=== PATIENT | female | born 1995 | race Caucasian/White ===

== ENCOUNTER 2023-03-06 17:20 | Emergency (ER) | payer MEDICAID ==
[~2023-03-06] VITALS: Ht 187.9 cm; Wt 49.8 kg
[2023-03-06] MEDS ORDERED: CYCL10TA25 PO (17:41)
[2023-03-06] MEDS ORDERED: MELO15TA39 PO (17:41)
--- NOTE | 2023-03-06 17:42 | ED Back Pain ---
General Chief Complaint: Back Problems Stated Complaint: BACK/RIGHT SHOULDER PAIN Source of Information: Patient Exam Limitations: No Limitations History of Present Illness Date Seen by Provider: Mar 06, 2023 Time Seen by Provider: 17:36 Initial Comments Patient is a 27-year-old female who presents ED with right shoulder blade pain. She reports sharp pain with movement over the past 3 years. She states she suffered a seizure and fell fracturing her scapula 3 years ago. She states she had an MRI which showed a fracture. She has been on anti-inflammatories and local novocaine shots without much improvement. Her primary care physician at [facility] is scheduling a follow-up with orthopedic. She states she is having unbearable pain. Denies any bruising, swelling, chest pain, shortness of breath or cough. No recent travels or surgeries. History of seizures currently on Keppra and Vimpat. She reports history of chronic seizures. Last seizure 2 or 3 days ago which is normal. Allergies and Home Medications Allergies Coded Allergies: Tetanus Vaccines and Toxoid (Verified Allergy, Unknown, 03/06/23) Patient Home Medication List Home Medication List Reviewed: Yes Cyclobenzaprine HCl (Cyclobenzaprine HCl) 10 Mg Tablet, 10 MG PO TID Prescribed by: KRISTEN MIDDLETON on 03/06/231740 Ketorolac Tromethamine (Ketorolac Tromethamine) 10 Mg Tablet, 10 MG PO TID Prescribed by: KRISTEN MIDDLETON on 03/06/23 1744 Discontinued Medications Meloxicam (Meloxicam) 15 Mg Tablet, 15 MG PO DAILY Prescribed by: KRISTEN MIDDLETON on 03/06/23 174 Review of Systems Constitutional: No chills, No diaphoresis EENTM: No hearing loss, No ear pain, No blurred vision, No double vision Respiratory: No cough, No dyspnea on exertion Cardiovascular: No chest pain Gastrointestinal: No abdominal pain, No diarrhea, No nausea, No vomiting Genitourinary: No decreased output, No discharge Musculoskeletal: back pain, joint pain, joint swelling, muscle pain Skin: No change in color All Other Systems Reviewed Negative Unless Noted: Yes Past Xousyzx-Sdwvea-Amjnla Hx Patient Social History Tobacco Use?: Yes Substance use?: Yes Substance type: Marijuana Alcohol Use?: No Physical Exam Vital Signs Vital Signs - First Documented 03/06/23 17:31 Pulse 71 B/P (MAP) 150/86 (107) Pulse Ox 100 O2 Delivery Room Air Capillary Refill : Height, Weight, BMI Height: '" Weight: lbs. oz. kg; BMI Method: General Appearance: No Apparent Distress, WD/WN HEENT: PERRL/EOMI, TMs Normal, Normal ENT Inspection, Pharynx Normal Neck: Full Range of Motion, Normal Inspection, Non Tender, Supple, Other (Negative Spurling sign. Normal active range of motion of the cervical spine) Cardiovascular: Regular Rate, Rhythm, No Edema, No Gallop, No JVD Respiratory: Chest Non Tender, Lungs Clear, Normal Breath Sounds, No Accessory Muscle Use, No Respiratory Distress Gastrointestinal: Normal Bowel Sounds, No Organomegaly, No Pulsatile Mass, Non Tender, Soft Back: Other (right scapula tenderness. Pain with range of motion the right shoulder. No bruising, redness or swelling. Neurovascular intact.) Extremity: Normal Capillary Refill, Normal Inspection, Other (Pain with range of motion above 90 degrees of the right shoulder. Gravure Press Set Up Operator strength out of 5. Strength with abduction flexion 5 out of 5. Internal/external rotation strength 5-5. Neurovascular intact) Neurologic/Psychiatric: Alert, Oriented x3, No Motor/Sensory Deficits Skin: Normal Color, Warm/Dry Progress/Results/Core Measures Results/Orders My Orders Orders - ZAC MCLAUGHLIN Hydrocodone/Apap 5/325 Tablet (Lortab 5 (03/06/23 17:45) Ketorolac Injection (Toradol Injection) (03/06/23 17:45) Medications Given in ED Current Medications Medications Dose Ordered Sig/Pilar Route Start Time Stop Time Status Last Admin Dose Admin Ketorolac Tromethamine 30 mg ONCE ONCE IM 03/06/23 17:45 03/06/23 17:46 DC 03/06/23 17:49 30 MG Vital Signs/I&O 03/06/23 03/06/23 17:31 17:52 Pulse 71 71 B/P (MAP) 150/86 (107) 150/86 Pulse Ox 100 100 O2 Delivery Room Air Room Air Departure Communication (PCP) Reviewed previous ER visits, H&P, lab testing. Chronic pain to right shoulder blade for the past 3 years. She has received Novocain shots and taken anti- inflammatories without much improvement. Primary care physician and community health scheduling appointment with orthopedic today. Difficulty sleeping. Continued pain. On exam right scapula tenderness. She has no numbness and tingling in her upper extremity. No chest pain, shortness of breath or cough. No recent falls. Discussed with patient that this is chronic pain. No reinjury. Since her primary care physician is working on a follow-up with orthopedic will continue with this process. Did receive a Toradol shot here. Will discharge with Toradol for a few days as well as Flexeril. Recommend ice, heat and rest. Range of motion exercises. Refused Novocain local injection. She states she has had an MRI that showed a fracture of her scapula. She is afebrile. No cervical, thoracic or lumbar midline tenderness. No neurological red flag findings need emergent imaging. Return precaution were discussed Impression Primary Impression: Back strain Disposition: 01 HOME, SELF-CARE Condition: Stable Departure-Patient Inst. Decision time for Depature: 17:40 Referrals: [facility] [place] ([place]/Family) Primary Care Physician RONIT FRANKLIN MD Patient Instructions: Back Muscle Strain (DC) Scripts Ketorolac Tromethamine (Ketorolac Tromethamine) 10 Mg Tablet 10 MG PO TID, #15 TAB Prov: ZAC MCLAUGHLIN 03/06/23 Cyclobenzaprine HCl (Cyclobenzaprine HCl) 10 Mg Tablet 10 MG PO TID, #14 TAB Prov: ZAC MCLAUGHLIN 03/06/23 ZAC MCLAUGHLIN Mar 06, 2023 17:41
[2023-03-06] MEDS ORDERED: KETO10TA PO (17:44)
[2023-03-06] MEDS ORDERED: HYDROcodone/APAP 5 MG/325 MG (LORTAB) TAB PO ONE (17:45)
[2023-03-06] MEDS ORDERED: KETOROLAC 30 MG/ML VIAL IM ONE (17:45)
[2023-03-06 17:52] VITALS: BP 150/86
== END 2023-03-06 17:53 | disposition home or self-care (01) ==
LOC: ER 17:24
DX: S29.012A Strain of muscle and tendon of back wall of thorax, initial encounter (principal); G40.909 Epilepsy, unspecified, not intractable, without status epilepticus; G89.29 Other chronic pain; F17.200 Nicotine dependence, unspecified, uncomplicated; Z79.899 Other long term (current) drug therapy; Z79.1 Long term (current) use of non-steroidal anti-inflammatories (NSAID); X58.XXXA Exposure to other specified factors, initial encounter
CPT/HCPCS: 99284